=== PATIENT | male | born 1960 | race Caucasian/White ===

== ENCOUNTER → 2016-07-30 | Day surgery (SDC) | payer MEDICARE ==
[~2016-07-30] VITALS: Ht 177.8 cm; Wt 91.1 kg
[~2016-07-30] MED LIST: ALTACE10 MG PO; ASPIRIN LO-DOSE81 MG PO; KEFLEX250 MG PO; LIPITOR80 MG PO; LOPRESSOR50 MG PO; NORVASC2.5 MG PO; TOPROL XL 5050 MG PO; XARELTO20 MG PO
--- NOTE | ~2016-07-30 | OR ---
PATIENT'S NAME: CHRISTOPH REYNOLDS [facility] AGE: 56 Y [address] ROOM: [place] [address] [place] [facility] [place]: 07/30/2016 OR/Procedure Report DISCHARGE DATE: FAMILY PHYSICIAN: Nahid Ceballos DO ATTENDING PHYSICIAN: MARGUERITE SARKAR SURGEON: Marguerite Sarkar MD ADULT PROTECTIVE CASEWORKER: DATE OF PROCEDURE: 07/29/2016 TYPE OF PROCEDURE: Direct current cardioversion. INDICATION: The patient has symptomatic atrial fibrillation with shortness of breath, palpitations, and lightheadedness. DESCRIPTION OF PROCEDURE: The patient is a very pleasant 56-year-old male from home. Informed consent was obtained for EFRAÍN and cardioversion. Anesthesia administered propofol and conscious sedation as well for the EFRAÍN and cardioversion. He has symptomatic atrial fibrillation with dyspnea on exertion, shortness of breath, palpitations, and lightheadedness. After EFRAÍN was performed without any evidence of left atrial appendage thrombus, it was decided to proceed with a cardioversion. Additional sedation with propofol was administered for deep sedation. Pads were placed in the anterior-posterior position and the patient received 1 shock with 200 joules of current. Synchronized cardioversion was performed with successful conversion to sinus rhythm. The patient tolerated the procedure well without any acute complications. IMPRESSION AND PLAN: 1. Status post successful cardioversion x1 attempt with 200 joules, synchronized cardioversion with successful conversion to normal sinus rhythm. 2. His systolic function on EFRAÍN appears reduced; so, I will stop the metoprolol 75 mg p.o. b.i.d. and switch him to Toprol-XL 50 mg p.o. daily since he was in sinus bradycardia after the cardioversion. 3. I will see the patient back in [facility] in a month with EKG. 4. I will also repeat the 2D echocardiogram when I see him back in [place] to reassess his left ventricular systolic function once he is in sinus rhythm. 5. I reiterated the importance of continuing Xarelto daily to decrease thromboembolic events postcardioversion. The patient understands and is agreeable with plan. PATIENT'S NAME: CHRISTOPH REYNOLDS [facility] AGE: 56 Y [address] ROOM: [place] [address] [place] [facility] [place]: 07/30/2016 OR/Procedure Report DISCHARGE DATE: FAMILY PHYSICIAN: Nahid Ceballos DO ATTENDING PHYSICIAN: MARGUERITE SARKAR MARGUERITE SARKAR MD AT/modl /[id number] CC: Nahid Ceballos DO d: 08/01/16 2303 t: 08/04/16 1320, OPERATIVE SUMMARY
--- NOTE | ~2016-07-30 | ECHO ---
Transesophageal Echocardiography Report (EFRAÍN) Demographics Patient Name CHRISTOPH REYNOLDS Date of Study 07/30/2016 Patient Number [id number] Visit Number [id number] Date of 1960 Room Number Gender Male Number Age 56 year(s) Referring Tucker Steele DO Senior Underwriting Assistant Darien Mars RDCS, Physician Kathrin Everett RVT, MD Physician Interpreting Kathrin Everett Iuss Analyst Physician MD Supervising Ordering Kathrin Everett MD/MLP Physician MD Nurse Stress Delivery Crew Worker Conclusions Summary There is no thrombus in the left atrial appendage. There is no LA or LA appendage thrombus or spontaneous contrast. The left atrium is mildly dilated. No significant valvular abnormalities. LV systolic function appears moderately reduced. Unable to accurately comment on LVEF accurately due to afib/rvr. Re: repeating 2D echo after DCCV to reassess LVEF. Procedure Type of Study EFRAÍN procedure:Color Doppler. Procedure Date Date: 07/30/2016 Start: 08:40 AM Study Location: [facility] Technical Quality: Adequate visualization Indications:Atrial fibrillation. Appropriate Use Criteria: 9 Patient Status: Routine BP: 110/72 mmHg O2 Saturation: 92 % EFRAÍN Performed By: the attending and the mountain services manager Type of Anesthesia: Moderate sedation Allergies - No known allergies. Findings Left Atrium There is no thrombus in the left atrial appendage. There is no LA or LA appendage thrombus or spontaneous contrast. The left atrium is mildly dilated. Right Atrium The right atrium is not dilated. Mitral Valve MV is grossly normal. Mild mitral regurgitation by color Doppler. Aortic Valve The aortic valve is mildly sclerotic. There is no aortic regurgitation by color Doppler. Tricuspid Valve Normal appearing tricuspid valve. Trivial tricuspid regurgitation by color Doppler. Pulmonic Valve Normal pulmonic valve structure and function. Miscellaneous The patient was brought to the EFRAÍN lab in the fasting state after informed consent was obtained in the written and verbal format. She/He was prepped with Lidocaine gel and Cetacaine spray as usual. Bite block was placed by me. Once adequate anesthesia was obtained with anesthesia guidance with propofol sedation the EFRAÍN probe was placed by me down into the stomach. It was pulled back slightly after a few views were obtained in the transgastric level to the transesophageal position where the majority of the case was carried out. At the end of the case the probe was rotated and withdrawn. Patient tolerated the procedure well. Pt was quite uncomfortable and the test was terminated prematurely due to severe cough/gagging. Signature dtt: MT SARKAR dtd: 07/30/16 0840 Physician Self Edit
--- NOTE | ~2016-07-30 | OR ---
PATIENT'S NAME: CHRISTOPH REYNOLDS [facility] AGE: 56 Y [address] ROOM: [place] [address] LOCATION: [facility] [place] ADMIT DATE: 07/30/2016 OR/Procedure Report DISCHARGE DATE: FAMILY PHYSICIAN: Nahid Ceballos DO ATTENDING PHYSICIAN: MT SARKAR SURGEON: Mt Sarkar MD ABSTRACT CLERK: DATE OF PROCEDURE: 07/30/2016 ADDENDUM: The date of procedure is actually 07/30/2016, not 07/29/2016 (the date of cardioversion). MT SARKAR MD AT/modl /[id number] d: 10/16/16 1656 t: 10/17/16 [facility], OPERATIVE SUMMARY
== END ==
LOC: GSDC 07-29 → GOPD 07-29 → EDSTATUS 07-29 → GSDC 07:51
DX: I48.1 Persistent atrial fibrillation (principal); I25.10 Atherosclerotic heart disease of native coronary artery without angina pectoris; I10 Essential (primary) hypertension; G47.33 Obstructive sleep apnea (adult) (pediatric); E78.5 Hyperlipidemia, unspecified; Z79.82 Long term (current) use of aspirin; Z79.899 Other long term (current) drug therapy
CPT/HCPCS: J7030

== ENCOUNTER 2016-08-25 07:56 | Outpatient (CLI) | payer MEDICARE ==
[~2016-08-25] VITALS: Ht 177.8 cm; Wt 88.7 kg
--- NOTE | ~2016-08-25 | CATH ---
Cardiac Diagnostic Report Demographics Patient Name GAIL Hopper Gender Male Date of 1960 Age 56 year(s) Patient Number [id number] Date of Study 08/25/2016 Visit Number [id number] Room Number [id number] [place] [id number] Ht 177.8 cm Wt 88.7 kg Referring Tucker Whitfield Ivette KINCAID Primary Physician Physician Performing [facility] Secondary Physician Physician Marguerite FERNANDEZ Diagnostic [facility] Assisting Physician Physician Marguerite FERNANDEZ Interventional Physician Abstractor Physician Findings and Conclusions Diagnostic Findings and Conclusion Mid LAD 20% ISR. No significant obsructive CAD. Coronaries essentially normal. LVEDP 6 mmHg. Diagnostic Recommendations Encouraged to exercise. Patient will be discharged later today. Continue current medications. Patient has been instructed to not lift anything more than 5 pounds for 1 week. I will plan on seeing the patient back in 3 week(s). Aggressive risk factor management. Aggressive medical therapy for coronary artery disease. Procedure Description The patient was brought to the diagnostic cardiac catheterization-EP laboratory in the fasting, non-sedated state. Informed consent was obtained in the written and verbal form after the risks and benefits were explained. The patient had no further questions and agreed to proceed. The planned puncture-incision site(s) were shaved and prepped with ChloraPrep and draped in the usual sterile manner. Conscious sedation, supplemental oxygen, and pain control medications were delivered by a registered nurse under physician guidance. Surface ECG rhythm, blood pressure measurement, and pulse oximetry were monitored throughout the procedure. Arterial access. The access site was infiltrated with lidocaine. The vessel was entered with the Seldinger technique. A sheath was advanced into the vessel and used for catheter placement. Selective left coronary angiography. A catheter was advanced into the left coronary vessel ostium under Fluoroscopic guidance. Contrast was injected by hand. Images were obtained in multiple projections. Selective right coronary angiography. A catheter was advanced into the right coronary vessel ostium under fluoroscopic guidance. Contrast was injected by hand. Images were obtained in multiple projections. Left heart catheterization. A catheter was advanced across the aortic valve to the left ventricle under fluoroscopic guidance. Resting hemodynamics were obtained. Arterial artery hemostasis was achieved. The patient was transferred to a regular nursing floor via cart accompanied by a nurse. The patient left the laboratory in stable condition. Diagnostic Cath Status: Elective Procedure Procedure Type Diagnostic procedure:Angiography:, Coronary Angios w/[facility] Indications: Chest pain. The procedure was explained in detail to the patient. Risks, complications and alternative treatments were reviewed. Written consent was obtained. Medications Reviewed with Patient prior to Procedure. Angiographic Findings Dominance: Right Cardiac Arteries and Lesion Findings LMCA: Normal (0% Stenosis). LAD: Lesion on Mid LAD: 20% stenosis . The lesion was previously treated on 03/23/2013 with the following techniques: drug eluting stent. This is in-stentrestenosis. LCx: Normal (0% Stenosis). RCA: Normal (0% Stenosis). Coronary Tree Procedure Data Procedure Date Date: 08/25/2016Start: 10:19 AMEnd: 10:41 AM Entry Locations - Retrograde Percutaneous access was performed through the Right Femoral artery (Primary location). A 6 Fr sheath was inserted. Hemostasis was successfully obtained using Angio-Seal STS PLUS ([employer] [place]). Closure Comments: Deployed by Dr. Anaya. Procedure Medications Order and Administration + + + +-------+ !Time !Medication !Dosage !Route ! + + + +-------+ !08/25/2016 10:18 AM !Fentanyl !25 mcg !I.V. ! + + + +-------+ !08/25/2016 10:18 AM !Versed !1 mg !I.V. ! + + + +-------+ !08/25/2016 10:23 AM !Oxygen !2 l/min !NC ! + + + +-------+ Devices Used - A5 Fr. BS JL 4 Diag. Catheterwas used for:Left coronary angiography. - A5 Fr. BS JR 4 Diag. Catheterwas used for:Right coronary angiography. - A5 Fr. BS Angled Pigtail Diag. Catheterwas used for:LV Pressures. Contrast Material - Isovue 85265 ml Fluoroscopy Time: Diagnostic: 2:24 minutes. Total: 2:24 minutes. Fluoroscopy Dose: Diagnostic: 541 mGy. Total: 541 mGy. Estimated Blood Loss: 10 ml. Medical History Performed Procedures and Imaging Results - Stress testing with SPECT MPIwas performed. Results were: Positive. Risk/Extent of ischemia was: Intermediate risk. Allergies - No known allergies. Risk Factors The patient risk factors include:prior PCI on 03/23/2013;hypertension, family history of premature CAD, last creatinine: 0.7 mg/dl, creatinine clearance: 147.83 ml/min, dyslipidemia and former tobacco use. Admission Data Admission Date: 08/25/2016 Admission Time: 07:56 AM Admit Source: Other Insurance Payors: Medicare. Admission Medications + +------+------+ + + + + !Medication !Dosage!Times !Last !Last !Administered !Comments ! ! ! !Per !Delivery !Delivery ! ! ! ! ! !Day !Date !Time ! ! ! + +------+------+ + + + + !Beta ! ! ! ! !Yes ! ! !Markos ! ! ! ! ! ! ! !(any) ! ! ! ! ! ! ! + +------+------+ + + + + !Statin ! ! ! ! !Yes ! ! !(any) ! ! ! ! ! ! ! + +------+------+ + + + + Clinical Evaluation Leading to Procedure - The patient's CAD presentation was assessed as: Unstable angina. - The patient's anginal syndrome during the past two weeks was assessed as: Class III according to the [place] Cardiovascular [employer] Classification System (CCS). Anti-anginal medications were prescribed during the past two weeks. The medications are: Beta Blockers and Ca channel Blockers. - The patient has been in a state of heart failure within the past two weeks. - The patient's heart failure status was assessed as NYHA Class II, with CHF symptoms of ELDER. - The reason for the patient's director of cardiac cath lab visit is evaluation of cardiomyopathy and/or evaluation of left ventricular systolic dysfunction. Hemodynamics Condition: Rest O2 Consumption: Estimated: 275.02Heart Rate: 108 bpm Pressures (mmHg) +-----+ + !Site !Pressure ! +-----+ + !AO !101/74 (88) ! +-----+ + !LV !106/2 ,7 ! +-----+ + !LV !110/1 ,6 ! +-----+ + !AO !112/73 (91) ! +-----+ + !LV !111/0 ,7 ! +-----+ + Valve Gradients and Areas + +---------+---------+---------+ +---------+ + !Valve !Peak !Mean !Area !Index !Flow !Source ! + +---------+---------+---------+ +---------+ + !Aortic !0 !0 ! ! ! ! ! + +---------+---------+---------+ +---------+ + !Aortic !0 !0 ! ! ! ! ! + +---------+---------+---------+ +---------+ + Shunts Oxygen Values O2 Capacity 220.32 O2 Consumption 275.02 Signatures dtt: MARGUERITE SARKAR dtd: 08/25/16 1019 Physician Self Edit
[~2016-08-25 07:56] MED LIST changes: -KEFLEX250 MG PO
[2016-08-25 09:07] LABS: INR - (THERAPEUTIC) 1.03 (0.92-1.07); PROTIME 10.8 SECONDS (9.8-11.4); PTT 28 SECONDS (25-32)
[2016-08-25 09:12] LABS: BASOPHIL # 0.1 K/uL (0.0-0.2); BASOPHIL % 1.8 %; EOSINOPHIL # 0.2 K/uL (0.0-0.5); EOSINOPHIL % 3.6 %; HEMATOCRIT 45.3 % (37.0-53.0); HEMOGLOBIN 16.2 g/dL (12.0-17.0); IMMATURE GRANULOCYTE % 0.3 %; LYMPHOCYTE % 33.4 %; MCH 33.8 pg (27.0-34.0); MCHC 35.8 gm/dL (32.0-36.5); MCV 94.6 fl (83.0-98.0); MONOCYTE % 16.8 %; MPV 9.7 fl (9.4-12.4); NEUTROPHIL # (ANC) 2.7 K/uL (1.4-9.0); NEUTROPHIL % 44.1 %; NRBC % 0 /100WBC (0-0.00); PLATELET COUNT 179 K/uL (150-450); RBC 4.79 M/uL (4.00-6.00); RDW-CV 11.6 % (11.9-14.6); WBC 6.1 K/uL (4.0-11.0)
[2016-08-25 09:14] LABS: ALBUMIN 3.3 gm/dL (3.5-5.0); ALK PHOS 110 IU/L (33-138); ALT 60 IU/L (12-78); ANION GAP 14.7 (10.0-19.0); AST 47 IU/L (10-40); BLOOD UREA NITROGEN 8 mg/dL (6-24); CALCIUM 8.6 mg/dL (8.5-10.5); CHLORIDE 107 mMol/L (96-110); CO2 25 mMol/L (22-32); CREATININE 0.7 mg/dL (0.6-1.3); POTASSIUM 3.7 mMol/L (3.7-5.1); SODIUM 143 mMol/L (135-145); TOTAL BILIRUBIN 0.9 mg/dL (0.0-1.5); TOTAL PROTEIN 7.5 g/dL (6.0-8.4)
[2016-08-25 09:20] LABS: ESTIMATED GFR (MDRD EQUATION) > 60
[2016-08-25] MEDS ORDERED: KEFLEX250 MG PO (11:11)
== END 2016-08-25 13:06 | disposition disaster alternative care site (69) ==
LOC: GCAT 07:56 → GPCU 07:56 → GPOC 08:00 → GCAT 13:06
PROVIDERS: Internal Medicine Interventional Cardiology
DX: R07.89 Other chest pain (principal); R06.00 Dyspnea, unspecified; I48.91 Unspecified atrial fibrillation; Z79.01 Long term (current) use of anticoagulants
CPT/HCPCS: C1760; J1644; J2001; J2250; J3010; J7030